=== PATIENT | female | born 1955 | race Caucasian/White ===

== ENCOUNTER 2016-11-10 02:26 | Emergency (ER) | payer MEDICAID ==
[2016-11-10 03:01] LABS: BASO % 0.4 % (0-6); EOS % 2.9 % (0-6); GRAN % 57.5 % (47-80); HEMATOCRIT 34.2 % (35.0-47.0); HEMOGLOBIN 10.9 gm/dl (11.6-16.0); LYMPH % 32.1 % (16-45); MEAN CELL VOLUME 94.2 fl (81-97); MEAN CORPUSCULAR HGB CONC 31.9 g/dl (32-36); MONO % 7.1 % (0-9); PLATELET COUNT 247 K/uL (130-400); RED BLOOD COUNT 3.63 M/uL (3.80-5.40); RED CELL DISTRIBUTION WIDTH 13.4 % (11.5-14.5); WHITE BLOOD COUNT W/O DIFF 12.5 K/uL (4.2-12.2)
[2016-11-10] MEDS: ASPIRIN 81 MG CHEWABLE TABLET PO ONE (03:08)
[2016-11-10 03:11] LABS: ALB/GLOB RATIO 1.1 (1.1-1.8); ALBUMIN 3.6 gm/dL (3.5-5.0); ALKALINE PHOSPHATASE 144 U/L (38-126); ALT/SGPT 18 U/L (9-52); ANION GAP 8.6 (7-16); AST/SGOT 11 U/L (14-36); BILIRUBIN,TOTAL 0.55 mg/dL (0.2-1.3); BLOOD UREA NITROGEN 32 mg/dL (7-17); CARBON DIOXIDE 30.4 mmol/L (22-30); CREATINE PHOSPHOKINASE 51 U/L (30-135); CREATININE 1.9 mg/dL (0.52-1.04); EST GLOMERULAR FILTRATION RATE 29 ml/min; GLUCOSE,RANDOM 184 mg/dL (70-110); TOTAL PROTEIN 6.9 gm/dL (6.3-8.2)
[2016-11-10 03:24] LABS: CKMB 0.5 ug/L (0-6); TROPONIN I < 0.012 ng/mL (0.00-0.034)
--- NOTE | 2016-11-10 03:26 | Emergency Department Record ---
History of Present Illness - General Chief Complaint: Shortness of breath Stated Complaint: NICK Time Seen by Provider: 11/10/16 02:43 Source: Patient Mode of Arrival: EMS Limitations: No limitations - History of Present Illness Initial Comments: pt was brought in by ems for cp that wraps around the chest and sob. she also has l leg pain she is worried she has a blood clot. she also has a sore throat. pt states she has the pain for 5 days MD Complaint: Chest pain, Cough, Shortness of breath Onset/Timin -: Days(s) Radiation: Back Severity: Moderate Severity scale (1-10): 10 Consistency: Constant Improves With: Nothing Worsens With: Inspiration Known History Of: COPD Associated Symptoms: Chest pain Treatments Prior to Arrival: Bronchodilator Treatment Prior to Arrival Comment:: rescue inhaler - Related Data Home Oxygen Therapy: No Home Medications Medication Instructions Recorded Confirmed Last Taken Acetaminop W/ Codeine 300/30Mg 1 tab PO BID 11/10/16 11/10/16 Unknown [Tylenol #3] Albuterol Sulfate [Proair Hfa] 1 - 2 puff INH Q4H PRN 11/10/16 11/10/16 11/10/16 Atorvastatin Calcium 20 mg PO DAILY 11/10/16 11/10/16 11/09/16 Diphenhydramine HCl [Benadryl] 25 mg PO QHS PRN 11/10/16 11/10/16 Unknown Duloxetine HCl [Cymbalta] 20 mg PO DAILY 11/10/16 11/10/16 11/09/16 Ferrous Sulfate 325 mg PO DAILY 11/10/16 11/10/16 11/09/16 Gabapentin [Neurontin] 300 mg PO TID 11/10/16 11/10/16 11/09/16 Glimepiride [Amaryl] 2 mg PO DAILY 11/10/16 11/10/16 11/09/16 Hydrochlorothiazide [Hctz 12.5MG] 12.5 mg PO DAILY 11/10/16 11/10/16 11/09/16 Ipratropium [place] [Atrovent Hfa] 12.9 gm IH BID 11/10/16 11/10/16 11/09/16 Lisinopril 20 mg PO DAILY 11/10/16 11/10/16 11/09/16 Loperamide HCl [Immodium] 2 mg PO NOW PRN 11/10/16 11/10/16 11/08/16 Metformin ER HCl [Glucophage Xr] 1,000 mg PO BID 11/10/16 11/10/16 11/09/16 Montelukast Sodium 10 mg PO DAILY 11/10/16 11/10/16 11/09/16 [place]-3 Fatty Acids/Fish Oil [Fish 1 each PO DAILY 11/10/16 11/10/16 11/09/16 Oil 1,000 mg Capsule] Propranolol HCl [Inderal Xl] 120 mg PO DAILY 11/10/16 11/10/16 11/09/16 Ranitidine HCl [Zantac] 150 mg PO DAILY 11/10/16 11/10/16 11/09/16 Allergies Allergy/AdvReac Type Severity Reaction Status Date / Time Penicillins AdvReac RASH Verified 11/10/16 02:30 Travel Screening - Travel/Exposure Within Last 30 Days Have you traveled within the last 30 days?: No - Travel Symptoms Symptom Screening: None Review of Systems Reviewed: No additional complaints except as noted below Constitutional: Reports: As per HPI. Denies: Chills, Fever, Malaise, Night sweats, Weakness, Weight change Eyes: Reports: As per HPI. Denies: Eye discharge, Eye pain, Photophobia, Vision change ENT: Reports: As per HPI, Throat pain. Denies: Congestion, Dental pain, Ear pain, Epistaxis, Hearing loss Respiratory: Reports: As per HPI. Denies: Cough, Dyspnea, Hemoptysis, Stridor, Wheezes Cardiovascular: Reports: As per HPI, Chest pain, Dyspnea on exertion. Denies: Arrhythmia, Edema, Murmurs, Orthopnea, Palpitations, Paroxysmal nocturnal dyspnea, Rheumatic Fever, Syncope Endocrine: Reports: As per HPI. Denies: Fatigue, Heat or cold intolerance, Polydipsia, Polyuria Gastrointestinal: Reports: As per HPI. Denies: Abdominal pain, Constipation, Diarrhea, Hematemesis, Hematochezia, Melena, Nausea, Vomiting Genitourinary: Reports: As per HPI. Denies: Abnormal menses, Discharge, Dyspareunia, Dysuria, Frequency, Hematuria, Incontinence, Retention, Urgency Musculoskeletal: Reports: As per HPI, Arthralgia, Myalgia. Denies: Back pain, Gout, Joint swelling, Neck pain Skin: Reports: As per HPI. Denies: Bruising, Change in color, Change in hair/ nails, Lesions, Pruritus, Rash Neurological: Reports: As per HPI. Denies: Abnormal gait, Confusion, Headache, Numbness, Paresthesias, Seizure, Tingling, Tremors, Vertigo, Weakness Psychiatric: Reports: As per HPI. Denies: Anxiety, Auditory hallucinations, Depression, Homicidal thoughts, Suicidal thoughts, Visual hallucinations Hematological/Lymphatic: Reports: As per HPI. Denies: Anemia, Blood Clots, Easy bleeding, Easy bruising, Swollen glands Past Medical History - SOCIAL HISTORY Smoking Status: Never smoker Alcohol Use: None Drug Use: None - RESPIRATORY Hx Respiratory Disorders: Yes Hx Asthma: Yes Hx COPD: Yes - CARDIOVASCULAR Hx Cardio Disorders: Yes Comment:: "ARTHRITIS AROUND HEART" - NEURO Hx Neuro Disorders: Yes Hx Headaches: Yes (MIGRAINES) Comment:: TREMORS - GI Hx GI Disorders: No - Hx Genitourinary Disorders: Yes Comment:: FUNCTIONAL INCONTINENCE - ENDOCRINE Hx Endocrine Disorders: Yes Hx Diabetes: Yes (II) - MUSCULOSKELETAL Hx Musculoskeletal Disorders: No - PSYCH Hx Psych Problems: No - HEMATOLOGY/ONCOLOGY Hx Hematology/Oncology Disorders: No Family Medical History Any Significant Family History?: Yes Family Hx Comment (NOT TO BE USED IN PLACE OF ITEMS BELOW): SISTER WITH CEREBAL PALSY. SISTER WITH SLE Hx Cancer: Brother/Sister Hx Dementia: Father, Mother Hx Diabetes: Mother, Brother/Sister, Grandparents Hx Heart Disease: Mother, Grandparents Physical Exam - General General Appearance: Alert, Oriented x3, Cooperative, Mild distress - Head Head exam: Normal inspection - Eye Eye exam: Normal appearance, PERRL, EOMI Pupils: Normal accommodation - ENT ENT exam: Normal exam, Mucous membranes moist, Normal external ear exam, Normal orophraynx Ear exam: Normal external inspection. negative: External canal tenderness Nasal Exam: Normal inspection. negative: Discharge, Sinus tenderness Mouth exam: Normal external inspection, Tongue normal Teeth exam: Normal inspection. negative: Dental caries Throat exam: Normal inspection. negative: Tonsillar erythema, Tonsillar exudate - Neck Neck exam: Normal inspection, Full ROM. negative: Tenderness - Respiratory Respiratory exam: Normal lung sounds bilaterally. negative: Respiratory distress - Cardiovascular Cardiovascular Exam: Regular rate, Normal rhythm, Normal heart sounds - GI/Abdominal GI/Abdominal exam: Soft, Normal bowel sounds. negative: Tenderness - Rectal Rectal exam: Deferred - exam: Deferred - Extremities Extremities exam: Calf tenderness, Full ROM, Normal capillary refill, Tenderness - Back Back exam: Reports: Normal inspection, Full ROM. Denies: Muscle spasm, Rash noted, Tenderness - Neurological Neurological exam: Alert, CN II-XII intact, Normal gait, Oriented X3 - Psychiatric Psychiatric exam: Normal affect, Normal mood - Skin Skin exam: Dry, Intact, Normal color, Warm Course Vital Signs 11/10/16 11/10/16 03:11 03:14 Temperature 98.2 F Pulse Rate [ 72 Pulse Ox Probe] Respiratory 26 H Rate Blood Pressure 104/51 [Right Arm] Pulse Ox 99 - Reevaluation(s) Reevaluation #1: 11/10/16 03:37 pt has a hi d-dimer and low gfr so she will be transferred to [facility] 11/10/16 03:41 Medical Decision Making - Lab Data Result diagrams: 11/10/16 02:40 11/10/16 02:40 Lab Results 11/10/16 11/10/16 11/10/16 Range/Units 02:40 02:40 02:40 WBC 12.5 H (4.2-12.2) K/uL RBC 3.63 L (3.80-5.40) M/uL Hgb 10.9 L (11.6-16.0) gm/dl Hct 34.2 L (35.0-47.0) % MCV 94.2 (81-97) fl MCH 30.0 (27-33) pg MCHC 31.9 L (32-36) g/dl RDW 13.4 (11.5-14.5) % Plt Count 247 (130-400) K/uL MPV 10.0 (7.4-10.4) fl Gran % 57.5 (47-80) % Lymphocytes % 32.1 (16-45) % Monocytes % 7.1 (0-9) % Eosinophils % 2.9 (0-6) % Basophils % 0.4 (0-6) % D-Dimer 1.05 H (0-0.59) mg/L FEU Sodium 140 (136-145) mmol/L Potassium 4.5 (3.5-5.1) mmol/L Chloride 101 (98-107) mmol/L Carbon Dioxide 30.4 H (22-30) mmol/L Anion Gap 8.6 (7-16) BUN 32 H (7-17) mg/dL Creatinine 1.9 H (0.52-1.04) mg/dL Estimated GFR 29 ml/min Random Glucose 184 H (70-110) mg/dL Calcium 9.1 (8.5-10.1) mg/dL Total Bilirubin 0.55 (0.2-1.3) mg/dL AST 11 L (14-36) U/L ALT 18 (9-52) U/L Alkaline Phosphatase 144 H (38-126) U/L Creatine Kinase 51 (30-135) U/L Total Protein 6.9 (6.3-8.2) gm/dL Albumin 3.6 (3.5-5.0) gm/dL Globulin 3.3 (1.4-4.8) gm/dL Albumin/Globulin Ratio 1.1 (1.1-1.8) Disposition Disposition: Transfer Clinical Impression: D-dimer, elevated Chest pain Qualifiers: Chest pain type: unspecified Qualified Code(s): R07.9 - Chest pain, unspecified Disposition: Acute Care Hospital Transfer Transfer To: [facility] Reason For Transfer: needs vq and doppler Accepting Physician: perlita sanchez and erasto Time Discussed w/Accepting Physician: 03:43 Forms: Patient Portal Access
== END 2016-11-10 04:19 | disposition short-term general hospital (02) ==
LOC: ER 02:26
DX: R07.9 Chest pain, unspecified (principal); R79.89 Other specified abnormal findings of blood chemistry; R06.02 Shortness of breath; J44.9 Chronic obstructive pulmonary disease, unspecified; J02.9 Acute pharyngitis, unspecified
CPT/HCPCS: 80053; 82550; 82553; 83880; 84484; 85025; 85379; 87880; 93005; 93010; 99285

== ENCOUNTER 2017-07-17 15:38 | Emergency (ER) | payer MEDICAID ==
[2017-07-17] MEDS ORDERED: 0.9 % SODIUM CHLORIDE 1000ML 1,000 ML IV ONE (15:54)
--- NOTE | 2017-07-17 16:00 | Emergency Department Record ---
History of Present Illness - General Chief complaint: Rectal bleeding Stated complaint: REDTAL BLEEDING Time Seen by Provider: 07/17/17 15:53 Source: Patient Mode of Arrival: EMS Limitations: No limitations - History of Present Illness Initial comments: 61 yo female presents with about two months of noting blood in the toilet paper when she wipes. She has noted blood mixed with stool the last three days. No vomiting. The stool has remained brown. She is on coumadin for a prior DVT. No fevers. Her last colonoscopy was many years ago. Last week she had some nausea and vomiting that has resolved. No blood in the emesis. She has been having LLQ pain as well for a few weeks. MD complaint: Blood on toilet paper, Gross hematochezia Onset/Timin -: Month(s) Radiation: LLQ Quality: Cramping Consistency: Intermittent Improves with: None Worsens with: None Context: Blood thinners Associated Symptoms: Abdominal pain Treatments Prior to Arrival: None - Related Data Home Medications Medication Instructions Recorded Confirmed Last Taken Albuterol Sulfate [Ventolin Hfa] 1 - 2 puff IH .EVERY 4-6 HOURS PRN 07/17/17 Unknown Warfarin Sodium [Coumadin] 7.5 mg PO DAILY 07/17/17 07/17/17 07/16/17 Previous Rx's Medication Instructions Recorded Hydrocortisone Acetate [Anusol-Hc] 25 mg RC BID #14 supp.rect 07/17/17 Allergies Allergy/AdvReac Type Severity Reaction Status Date / Time Penicillins AdvReac RASH Verified 07/17/17 15:40 Travel Screening - Travel/Exposure Within Last 30 Days Have you traveled within the last 30 days?: No Review of Systems Constitutional: Denies: Chills, Fever, Malaise, Weakness Eyes: Denies: Eye discharge ENT: Denies: Congestion, Throat pain Respiratory: Denies: Cough, Dyspnea, Hemoptysis, Stridor Cardiovascular: Denies: Chest pain, Palpitations, Syncope Endocrine: Denies: Fatigue, Polydipsia, Polyuria Gastrointestinal: Reports: Abdominal pain (LLQ), Hematochezia (blood mostly with wiping the last 2 months), Nausea, Vomiting (last week). Denies: Constipation, Diarrhea, Hematemesis, Melena Genitourinary: Denies: Discharge, Dysuria Musculoskeletal: Denies: Arthralgia, Back pain Skin: Denies: Bruising, Change in color Neurological: Denies: Confusion, Headache Psychiatric: Denies: Anxiety Hematological/Lymphatic: Denies: Blood Clots, Easy bleeding, Easy bruising, Swollen glands Past Medical History - SOCIAL HISTORY Smoking Status: Never smoker Alcohol Use: None Drug Use: None - RESPIRATORY Hx Respiratory Disorders: Yes Hx Asthma: Yes Hx COPD: Yes Comment:: wears 2 L at all times - CARDIOVASCULAR Hx Cardio Disorders: Yes Hx Deep Vein Thrombosis: Yes Hx Hypertension: Yes Comment:: "ARTHRITIS AROUND HEART" - NEURO Hx Neuro Disorders: Yes Hx Headaches: Yes (MIGRAINES) Comment:: TREMORS - GI Hx GI Disorders: Yes Hx Ulcer: Yes Comment:: hemrrhoids - Hx Genitourinary Disorders: Yes Comment:: FUNCTIONAL INCONTINENCE - ENDOCRINE Hx Endocrine Disorders: Yes Hx Diabetes: Yes (II) - MUSCULOSKELETAL Hx Musculoskeletal Disorders: No - PSYCH Hx Psych Problems: No - HEMATOLOGY/ONCOLOGY Hx Hematology/Oncology Disorders: No Family Medical History Any Significant Family History?: Yes Family Hx Comment (NOT TO BE USED IN PLACE OF ITEMS BELOW): SISTER WITH CEREBAL PALSY. SISTER WITH SLE Hx Cancer: Brother/Sister Hx Dementia: Father, Mother Hx Diabetes: Mother, Brother/Sister, Grandparents Hx Heart Disease: Mother, Grandparents Physical Exam - General General Appearance: Alert, Oriented x3, Cooperative, No acute distress, Other ( Morbidly obese) Limitations: No limitations - Head Head exam: Normal inspection - Eye Eye exam: Normal appearance, PERRL. negative: Conjunctival injection, Scleral icterus - ENT ENT exam: Normal exam, Mucous membranes moist, Normal orophraynx Ear exam: Normal external inspection Nasal Exam: Normal inspection Mouth exam: Normal external inspection Throat exam: Normal inspection - Neck Neck exam: Normal inspection, Full ROM. negative: Tenderness - Respiratory Respiratory exam: Normal lung sounds bilaterally. negative: Respiratory distress - Cardiovascular Cardiovascular Exam: Regular rate, Normal rhythm, Normal heart sounds - GI/Abdominal GI/Abdominal exam: Soft, Tenderness (Tender to palpation LLQ otherwise soft). negative: Guarding, Rebound, Rigid - Rectal Rectal exam: Heme (-) stool, Hemorrhoids (small tender likely fissue and hemorrhoid vs redudent tissue), Normal rectal tone. negative: Black stool ( brown), Bloody stool, Decreased rectal tone, Fecal impaction, Heme (+) stool - exam: Deferred - Extremities Extremities exam: Normal inspection - Neurological Neurological exam: Alert, Oriented X3 - Psychiatric Psychiatric exam: Normal affect, Normal mood. negative: Agitated, Anxious - Skin Skin exam: Dry, Intact, Normal color, Warm Course Vital Signs 07/17/17 15:41 Temperature 98.1 F Pulse Rate 95 H Respiratory 20 Rate Blood Pressure 113/71 Pulse Ox 100 - Reevaluation(s) Reevaluation #1: 07/17/17 16:55 The labs were reviewed The CBC demonstrates a chronic stable anemia with a Hgb of 10.8 The INR is 2.4 The CMP was reviewed. No acute changes. CR is 1.1 Magnesium is 1.3 07/17/17 17:44 The patient is comfortable, tolerating her oral contrast well. 07/17/17 19:[address] scan was negative for acute process. Few diverticula. Non complicated hernia. 07/17/17 19:08 Dr Atwood was informed and will follow her up this week Medical Decision Making - Lab Data Result diagrams: 07/17/17 15:25 07/17/17 15:25 Disposition Disposition: Discharge Clinical Impression: Blood in stool Disposition: Home, Self-Care Condition: (1) Good Instructions: Rectal Bleeding (ED) Additional Instructions: Call Dr Atwood for a follow up this week Return if you have any pain, fever, bleeding or concerns Use the suppository to decrease the hemorrhoid inflammation Prescriptions: Hydrocortisone Acetate [Anusol-Hc] 25 mg RC BID #14 supp.rect Forms: Patient Portal Access Time of Disposition: 19:06 Quality - Quality Measures Quality Measures: N/A - Blood Pressure Screening Does Patient Have Any of the Following: No Blood Pressure Classification: Normal BP Reading Systolic Measurement: 113 Diastolic Measurement: 71 Screening for High Blood Pressure: < Normal BP, F/U Not Required > [G8783]
[2017-07-17 16:01] LABS: BASO % 0.5 % (0-6); EOS % 2.2 % (0-6); GRAN % 65.4 % (47-80); HEMATOCRIT 34.7 % (35.0-47.0); HEMOGLOBIN 10.8 gm/dl (11.6-16.0); LYMPH % 25.8 % (16-45); MEAN CELL VOLUME 90.4 fl (81-97); MEAN CORPUSCULAR HEMOGLOBIN 28.1 pg (27-33); MEAN CORPUSCULAR HGB CONC 31.1 g/dl (32-36); MEAN PLATELET VOLUME 9.6 fl (7.4-10.4); MONO % 6.1 % (0-9); PLATELET COUNT 297 K/uL (130-400); RED BLOOD COUNT 3.84 M/uL (3.80-5.40); RED CELL DISTRIBUTION WIDTH 13.3 % (11.5-14.5); WHITE BLOOD COUNT W/O DIFF 11.2 K/uL (4.2-12.2)
[2017-07-17 16:20] LABS: ALB/GLOB RATIO 0.9 (1.1-1.8); ALBUMIN 3.6 g/dL (4.0-5.0); BILIRUBIN,TOTAL 0.3 mg/dL (0.2-1.0); CREATININE 1.1 mg/dL (0.5-0.9); TOTAL PROTEIN 7.4 g/dL (6.6-8.7)
[2017-07-17 16:29] LABS: INR 2.4; PARTIAL THROMBOPLASTIN TIME 45.5 SECONDS (24.5-39.1)
[2017-07-17] MEDS ORDERED: MAGNESIUM SULFATE 16 MEQ in 0.9 % SODIUM CHLORIDE 100ML 100 ML IV ONE (16:55)
--- NOTE | 2017-07-18 10:56 | CT SCAN REPORT ---
EXAM: CT OF THE ABDOMEN AND PELVIS WITH CONTRAST HISTORY: LEFT LOWER QUADRANT ABDOMINAL PAIN. BLOOD IN STOOL. PRIOR APPENDECTOMY, CHOLECYSTECTOMY, AND HYSTERECTOMY. TECHNIQUE: Following oral and intravenous contrast administration helical CT examination of the abdomen and pelvis was performed including delayed images through the kidneys with 90 ml of Omnipaque 300 utilized. Comparison: CT of the abdomen and pelvis without contrast dated 07/06/08. FINDINGS: Patchy opacities are noted in the dependent right lung base consistent with atelectasis or less likely infiltrate. Linear opacity within the posterolateral left lung base consistent with atelectasis or scar. No pleural or pericardial effusion. The heart is not enlarged. No suspicious focal lesion demonstrated within the liver, spleen, pancreas, nor adrenal glands. There is a possible too small to characterize hypodense density within the high right kidney measuring 4 mm. This is nonspecific, but likely a cyst. There is a too small to characterize hypodense lesion within the posterolateral mid to lower left kidney measuring 9.8 mm. This is nonspecific, but likely a cyst. There is a small fluid density mass in the posteromedial upper pole of the left kidney measuring 1.4 cm consistent with a benign cyst. The kidneys are otherwise normal in appearance. The gallbladder is surgically absent. No biliary ductal dilatation is seen. No intraabdominal nor retroperitoneal lymphadenopathy. The portal vein and splenic vein are patent. The proximal mesenteric vasculature appears patent. The abdominal aorta and iliac arteries are unremarkable. No definite pelvic mass, lymphadenopathy, or free pelvic fluid. The uterus is surgically absent. No intrinsic urinary bladder abnormality. No gross bowel dilatation nor bowel wall thickening. Occasional diverticula are questioned in the left colon without evidence of diverticulitis. By history the appendix is surgically absent. There is a small fat filled umbilical hernia. No lytic or blastic bone lesion is seen. Multilevel degenerative changes are noted within the visualized spine most pronounced at the lower lumbar levels where they are moderate in degree. IMPRESSION: 1. THE EXAMINATION IS MILDLY LIMITED BY INCREASED IMAGE NOISE DUE TO LARGE BODY HABITUS. 2. NO DEFINITE CT EVIDENCE OF AN ACUTE INTRAABDOMINAL NOR INTRAPELVIC PROCESS. 3. OCCASIONAL DIVERTICULA SUGGESTED WITHIN THE LEFT COLON WITHOUT CONVINCING EVIDENCE OF DIVERTICULITIS. 4. SURGICAL ABSENCE OF THE GALLBLADDER, APPENDIX, AND UTERUS. 5. SMALL FAT FILLED UMBILICAL HERNIA REDEMONSTRATED. NOT MENTIONED ABOVE IS A POSSIBLE SMALL FAT FILLED VENTRAL WALL HERNIA JUST ABOVE THE UMBILICUS MEASURING 4 X 2 CM, APPEARING UNCOMPLICATED. 6. SMALL CYST IN THE UPPER POLE OF THE LEFT KIDNEY. TOO SMALL TO CHARACTERIZE HYPODENSE LESION IN THE MID TO LOWER LEFT KIDNEY. THIS IS NONSPECIFIC, BUT LIKELY A CYST. JOB NUMBER: [id number] [facility]
== END 2017-07-17 19:34 | disposition home or self-care (01) ==
LOC: ER 15:38
DX: K92.1 Melena (principal); I10 Essential (primary) hypertension; R10.32 Left lower quadrant pain; J44.9 Chronic obstructive pulmonary disease, unspecified; Z86.718 Personal history of other venous thrombosis and embolism; Z99.81 Dependence on supplemental oxygen; Z79.01 Long term (current) use of anticoagulants
CPT/HCPCS: 99284 ×2; 96374; 83735; 85025; 85730; 85610; 80053; 74177; Q9967; J7030

== ENCOUNTER 2018-09-03 12:51 | Emergency (ER) | payer MEDICAID ==
[2018-09-03 13:27] LABS: BASO % 0.3 % (0-6); EOS % 3.2 % (0-6); GRAN % 66.6 % (47-80); HEMATOCRIT 31.1 % (35.0-47.0); HEMOGLOBIN 9.6 gm/dl (11.6-16.0); LYMPH % 24.8 % (16-45); MEAN CORPUSCULAR HGB CONC 30.9 g/dl (32-36); MONO % 5.1 % (0-9); PLATELET COUNT 269 K/uL (130-400); RED BLOOD COUNT 3.14 M/uL (3.80-5.40); RED CELL DISTRIBUTION WIDTH 13.2 % (11.5-14.5); WHITE BLOOD COUNT W/O DIFF 10.8 K/uL (4.2-12.2)
[2018-09-03 13:34] LABS: MEAN CORPUSCULAR HEMOGLOBIN 30.5 pg (27-33)
[2018-09-03 13:41] LABS: BILIRUBIN,TOTAL 0.3 mg/dL (0.2-1.0); CREATININE 1.8 mg/dL (0.5-0.9)
[2018-09-03 13:46] LABS: ALB/GLOB RATIO 1.1 (1.1-1.8); ALBUMIN 3.6 g/dL (4.0-5.0)
--- NOTE | 2018-09-03 13:53 | Emergency Department Record ---
History of Present Illness - General Chief complaint: Lower Extremity Pain Stated complaint: KNOT IN LT LEG Time Seen by Provider: 09/03/18 13:09 Source: Patient Mode of Arrival: EMS Limitations: No limitations - History of Present Illness Initial comments: The patient is here due to lower leg pain L>R for 3 weeks. The patient states the pain is intermittent and mainly in the L leg. She denies any CP or SOB or any fever or VIZCARRA's. She does states she had a blood clot in the R leg 2 years ago but is no longer on any blood thinners. MD Complaint: Extremity pain Onset/Timin -: Week(s) Location: Left, Lower Leg Severity scale (1-10): 8 Consistency: Constant Improves with: Nothing Worsens with: Nothing - Related Data Allergies Allergy/AdvReac Type Severity Reaction Status Date / Time Penicillins AdvReac RASH Verified 09/03/18 13:06 Travel Screening - Travel/Exposure Within Last 30 Days Have you traveled within the last 30 days?: No - Travel/Exposure Within Last Year Have you traveled outside the [place] in the last year?: No - Additonal Travel Details Have you been exposed to anyone with a communicable illness?: No - Travel Symptoms Symptom Screening: None Review of Systems Constitutional: Denies: Chills, Fever Eyes: Denies: Eye discharge ENT: Denies: Congestion Respiratory: Denies: Cough, Dyspnea Cardiovascular: Denies: Arrhythmia, Chest pain Endocrine: Denies: Fatigue Gastrointestinal: Denies: Nausea Genitourinary: Denies: Dysuria Musculoskeletal: Denies: Arthralgia Skin: Denies: Bruising Past Medical History - SOCIAL HISTORY Smoking Status: Never smoker Alcohol Use: None Drug Use: None - RESPIRATORY Hx Respiratory Disorders: Yes Hx Asthma: Yes Hx COPD: Yes Comment:: wears 2 L at all times - CARDIOVASCULAR Hx Cardio Disorders: Yes Hx Deep Vein Thrombosis: Yes Hx Hypertension: Yes Comment:: "ARTHRITIS AROUND HEART" - NEURO Hx Neuro Disorders: Yes Hx Headaches: Yes (MIGRAINES) Comment:: TREMORS - GI Hx GI Disorders: Yes Hx Hiatal Hernia: Yes Hx Ulcer: Yes Comment:: hemrrhoids - Hx Genitourinary Disorders: Yes Hx Bladder Problem: Yes Comment:: FUNCTIONAL INCONTINENCE - ENDOCRINE Hx Endocrine Disorders: Yes Hx Diabetes: Yes (II) Hx Thyroid Disease: No - MUSCULOSKELETAL Hx Musculoskeletal Disorders: No - PSYCH Hx Psych Problems: No - HEMATOLOGY/ONCOLOGY Hx Hematology/Oncology Disorders: No Family Medical History Any Significant Family History?: No Family Hx Comment (NOT TO BE USED IN PLACE OF ITEMS BELOW): SISTER WITH CEREBAL PALSY. SISTER WITH SLE Hx Cancer: Brother/Sister Hx Dementia: Father, Mother Hx Diabetes: Mother, Brother/Sister, Grandparents Hx Heart Disease: Mother, Grandparents Physical Exam - General General Appearance: Alert, Oriented x3, Cooperative, No acute distress - Head Head exam: Atraumatic, Normocephalic, Normal inspection - Eye Eye exam: Normal appearance, PERRL - ENT Throat exam: Normal inspection. negative: Tonsillar erythema, Tonsillar exudate - Neck Neck exam: Normal inspection, Full ROM. negative: Lymphadenopathy, Meningismus , Tenderness - Respiratory Respiratory exam: Normal lung sounds bilaterally. negative: Respiratory distress - Cardiovascular Cardiovascular Exam: Regular rate, Normal rhythm, Normal heart sounds - GI/Abdominal GI/Abdominal exam: Soft, Normal bowel sounds. negative: Tenderness - Extremities Extremities exam: Normal inspection, Calf tenderness, Full ROM, Tenderness ( There is diffuse mild L>R lower leg tenderness.). negative: Joint swelling, Pedal edema Course Vital Signs 09/03/18 12:52 Temperature 97.9 F Pulse Rate 87 Respiratory 20 Rate Blood Pressure 141/73 Pulse Ox 99 - Reevaluation(s) Reevaluation #1: The patient is doing well at this time. She is resting comfortably with no new complaints. I did explain to her that the leg dopplers did not demonstrate any acute DVT. She is to F/U with Dr. Atwood for recheck later this week. I did discuss the plan with Dr. Atwood and he can see her in the office tomorrow or 09/03/18 15:30 Reevaluation #2: I also did discuss the elevated BUN and CR with Dr. Atwood and he will recheck them and have it followed. 09/03/18 15:33 Medical Decision Making - Data Complexity MDM Data: Labs Ordered and/or Reviewed, X-Ray Ordered and/or Reviewed - Lab Data Result diagrams: 09/03/18 13:05 09/03/18 13:05 Lab Results 09/03/18 09/03/18 Range/Units 13:05 13:05 WBC 10.8 (4.2-12.2) K/uL RBC 3.14 L (3.80-5.40) M/uL Hgb 9.6 L (11.6-16.0) gm/dl Hct 31.1 L (35.0-47.0) % MCV 99.0 H (81-97) fl MCH 30.5 (27-33) pg MCHC 30.9 L (32-36) g/dl RDW 13.2 (11.5-14.5) % Plt Count 269 (130-400) K/uL MPV 10.0 (7.4-10.4) fl Gran % 66.6 (47-80) % Lymphocytes % 24.8 (16-45) % Monocytes % 5.1 (0-9) % Eosinophils % 3.2 (0-6) % Basophils % 0.3 (0-6) % Sodium 140 (136-145) mmol/L Potassium 4.8 H (3.4-4.5) mmol/L Chloride 96 L (98-107) mmol/L Carbon Dioxide 32.0 H (22-29) mmol/L Anion Gap 12.0 (7-16) BUN 38 H (8-23) mg/dL Creatinine 1.8 H (0.5-0.9) mg/dL Estimated GFR 30 mL/min Random Glucose 158 H (74-109) mg/dL Calcium 9.7 (8.8-10.2) mg/dL Total Bilirubin 0.30 (0.2-1.0) mg/dL AST 8 L (10.0-35.0) U/L ALT 10 (<33) U/L Alkaline Phosphatase 118 H (35-104) U/L Total Protein 7.0 (6.6-8.7) g/dL Albumin 3.6 L (4.0-5.0) g/dL Globulin 3.4 (1.4-4.8) gm/dL Albumin/Globulin Ratio 1.1 (1.1-1.8) - Radiology Data Radiology results: Report reviewed (Leg Dopplers: Neg for acute DVT.) Disposition Disposition: Discharge Clinical Impression: Leg pain, bilateral Disposition: Home, Self-Care Condition: (2) Stable Instructions: Leg Pain (ED) Additional Instructions: Please continue your regular medicines and please see Dr. Atwood tomorrow for recheck. Return to the ER for any worsening symptoms. Forms: Patient Portal Access Time of Disposition: 15:32 Quality - Quality Measures Quality Measures: N/A - Blood Pressure Screening View Details: Yes Does Patient Have Any of the Following: Active Dx of HTN Blood Pressure Classification: Hypertensive Reading Systolic Measurement: 141 Diastolic Measurement: 73 Screening for High Blood Pressure: Patient Exclusion, Hx of HTN [G9744]
[2018-09-03] MEDS ORDERED: ACETAMINOPHEN W/ CODEINE 300MG/30MG TABLET PO ONE (14:03)
--- NOTE | 2018-09-04 20:55 | US VENOUS DOPPLER REPORT ---
EXAM: ULTRASOUND VENOUS DOPPLER LOWER EXT CECIL HISTORY: BILATERAL LEG PAIN. LEFT CALF LUMP. NO KNOWN INJURY. TECHNIQUE: Bilateral lower extremity venous duplex ultrasound with evaluation of compression, augmentation, and color-flow. COMPARISON: Left lower extremity venous duplex ultrasound 04/07/2015. FINDINGS: No evidence of thrombosis involving the right external iliac, common femoral, profunda femoral, proximal/mid/distal femoral, popliteal, gastrocnemius , or posterior tibial veins. Peroneal and anterior tibial veins are not well visualized. No evidence of thrombus involving the left external iliac, common femoral, profunda femoral, proximal/mid/distal femoral, popliteal, gastrocnemius, or posterior tibial veins. Peroneal and anterior tibial veins are not well seen. In area of described palpable abnormality, reportedly along the lateral aspect of the left lower leg, there is a rounded hypoechoic structure with no internal color-flow measuring 0.7 x 0.6 x 0.6 cm. IMPRESSION: 1. NO EVIDENCE OF THROMBUS IN THE RIGHT OR LEFT LOWER EXTREMITIES. LIMITED VISUALIZATION OF THE PERONEAL AND ANTERIOR TIBIAL VEINS OF BOTH LEGS. 2. SMALL HYPOECHOIC 7 MM COLLECTION IN THE SUPERFICIAL SOFT TISSUES OF THE LATERAL LEFT LOWER LEG, REPORTEDLY CORRESPONDING TO A PALPABLE ABNORMALITY. APPEARANCE IS INDETERMINATE BY ULTRASOUND AND COULD REPRESENT A SMALL SOFT TISSUE COLLECTION, SUCH HEMATOMA, WITH OTHER ETIOLOGIES NOT EXCLUDED. RECOMMEND CONTINUED CLINICAL SURVEILLANCE. JOB NUMBER: [id number] [facility]
== END 2018-09-03 16:17 | disposition home or self-care (01) ==
LOC: ER 12:51
DX: M79.662 Pain in left lower leg (principal); M79.661 Pain in right lower leg; J44.9 Chronic obstructive pulmonary disease, unspecified; I10 Essential (primary) hypertension; E11.9 Type 2 diabetes mellitus without complications; Z99.81 Dependence on supplemental oxygen
CPT/HCPCS: 80053; 85025; 93970; 99283; 99284